=== PATIENT | male | born 1945 | race African-American/Black ===

== ENCOUNTER 2017-11-26 21:26 | Inpatient (IN) | payer MEDICARE ==
[~2017-11-26 21:26] MED LIST: ISOVUE-370 76%-LOCM 1 ML ONE; Iopamidol 370 76% 50 ML VIAL FS ONE
--- NOTE | 2017-11-26 22:12 | RAD ---
ONE VIEW CHEST TWO VIEW ABDOMEN 11/26/17 COMPARISON: 08/25/03. HISTORY: Abdominal distention. FINDINGS: Slight elongation of the aorta. Normal cardiac silhouette. Pulmonary vessels and hilum are normal. Co stophrenic angles are clear. Possible nodular density in the right lung base. No pneumothorax or osse ous abnormalities. Left sided Mediport catheter is noted. ABDOMEN TWO VIEWS: Nonspecific bowel gas pattern. No suspicious densities in the abdomen or pelvis. No pneumoperitoneum. No differential air fluid levels. IMPRESSION: 1. Nonspecific bowel gas pattern. 2. Possible nodular density in the right lung base. POS: [facility]
[2017-11-26] MEDS ORDERED: Fentanyl 100 MCG/2 ML VIAL ONE (22:17)
[2017-11-26 22:27] LABS: #Lymphocytes 1.3 thou/uL (1.20-3.40); #Monocytes 0.6 thou/uL (0.11-0.59); #Neutrophils 3.5 thou/uL (1.40-6.50); %Basophils 0.7 % (0.0-1.0); %Eosinophils 0.7 % (0.0-10.0); %Lymphocytes 23.8 % (21.0-51.0); %Monocytes 11.5 % (0.0-10.0); %Neutrophils 63.2 % (42.0-75.0); Hemoglobin 13.7 g/dL (14.0-18.0); Mean Corpuscular HGB CONC 34.6 g/dL (32.0-36.0); Mean Corpuscular Hemoglobin 34.7 pg (27.0-31.0); Mean Platelet Volume 6.7 fL (7.4-10.4); Platelet Count 290 thou/uL (130-400); RBC Distribution Width 13.4 % (11.5-14.5); Red Blood Cell (RBC) Count 3.94 mill/uL (4.70-6.10); White Blood Cell (WBC) Count 5.5 thou/uL (4.8-10.8)
[2017-11-26 22:43] LABS: Lactic Acid 1.1 mmol/L (0.5-2.2)
[2017-11-26] MEDS ORDERED: Morphine 4 MG/ML VIAL ONE (23:18)
[2017-11-26 23:19] LABS: Albumin 3.5 g/dL (3.4-4.8)
[2017-11-26 23:20] LABS: Chloride 100 mmol/L (98-107); Potassium 3.8 mmol/L (3.5-5.1); Sodium 137 mmol/L (136-145)
[2017-11-26 23:21] LABS: Glucose 99 mg/dL (80-115)
[2017-11-26 23:22] LABS: Globulin 4.1 g/dL (2.4-3.5); Protein, Total 7.6 g/dL (5.8-8.1)
[2017-11-26 23:23] LABS: Anion Gap 11 mmol/L (10-20); Bilirubin, Total 1.2 mg/dL (0.2-1.2); Carbon Dioxide 30 mmol/L (23-31)
[2017-11-26 23:24] LABS: Alkaline Phosphatase 205 U/L (40-150)
[2017-11-26 23:25] LABS: Calc. Creatinine Clearance 0 mL/min (70-130); Estimated GFR-MDRD Greater than 90
[2017-11-26 23:26] LABS: BUN (Urea Nitrogen) 21 mg/dL (8.4-25.7)
[2017-11-26 23:27] LABS: ALT (SGPT) 30 U/L (8-55); AST (SGOT) 41 U/L (5-34)
[2017-11-26 23:28] LABS: Lipase 227 U/L (8-78)
[2017-11-27] MEDS ORDERED: Morphine 4 MG/ML VIAL ONE ×2 (00:15→02:05)
--- NOTE | 2017-11-27 01:46 | PDOC.FPRHP ---
- History of Present Illness Chief Complaint: Abdominal Pain/Distention History of Present Illness: 72 yo AA male w/ pmh of Gastric Cancer currently getting Chemo and hx of Prostate cancer comes in w/ intractable abdominal pain and distention. Reports being constipated since Friday. Says pain started on Friday and has progressively gotten worse. Says pain is achy and rates 8/9. Radiates to his back. Says he gave himself an enema today and had some regular stools. Reports pain not resolved. Denies any bloody stool. Denies any n/v. Denies any fever or chills. Denies any chest pain or SOB. Denies any urinary sx's. Denies any burning with urination. Pt reports being dx with gastric cancer last may and had surgery. Doesn't remember what surgery. Is currently getting chemo every 2 weeks down at [facility]. Does not remember who is doctor is. Says had an episode of abdominal pain like this happened earlier this year and he went to [place]. He also reports being dx with prostate cancer 3 years ago and having prostectomy for that. Pt does not know results of most recent PET scan or CT scan. Pt not the greatest historian. Denies taking any medications at this time. - Allergies/Adverse Reactions Allergies Allergy/AdvReac Type Severity Reaction Status Date / Time No Known Allergies Allergy Verified 11/27/17 04:46 - Home Medications Medication Instructions Recorded Confirmed Type No Known [No Known] 11/27/17 11/27/17 History - History PMHx: COPD, Gastric Cancer on Chemo, Hx Prostate Cancer PSHx: Prostectomy, Some GI surgery for Gastric Cancer last year FHx:Non contributory Social: Smokes 1/4 ppd, Denies alcohol use, Denies illicit drug use - Review of Systems General: reports: weight/appetite/sleep changes. denies: fever/chills, night sweats, fatigue, other Eyes: denies: eye pain, vision changes ENT: denies: nasal congestion, rhinorrhea Respiratory: denies: cough, congestion, shortness of breath, exercise intolerance Cardiovascular: denies: chest pain, palpitation, paroxysmal nocturnal dyspnea, orthopnea Gastrointestinal: reports: constipation, abdominal pain. denies: nausea, vomiting, diarrhea, GI bleeding Genitourinary: denies: incontinence, dysuria, polyuria, discharge Skin: denies: rashes, lesions, jaundice, itching Musculoskeletal: denies: pain, tenderness, stiffness, swelling, arthritis/ arthralgias Neurological: denies: numbness, syncope, seizure, weakness Psychological: denies: anxiety, depression - Vital signs BP: [137/86] HR: [76] RR: [14] Tmax: [98.4 F] Pox: [97]% on [ra] Wt: [] - Physical Exam Constitutional: awake, alert and oriented HEENT: normocephalic and atraumatic, PERRLA, grossly normal hearing, normal nasal mucosa, MMM Neck: supple, trachea midline, no LAD, no JVD, no bruits Chest: no-tender to palpation, no lesions Heart: RRR, normal S1/S2, no murmurs/rubs/gallops, pulses present, no edema Lungs: no respiratory distress, no wheezing -Lungs: some mild rales noted. Abdomen: bowel sounds present -Abdomen: Very distended, Belly hard and tight. TTP in lower quadrants. Negative Mcmurphys and McBurneys Musculoskeletal: normal structure, normal tone Neurological: no focal deficit Skin: no rash/lesions, good turgor, capillary refill <2 seconds Heme/Lymphatic: no unusual bruising or bleeding, no purpura, no petechia Psychiatric: normal mood and affect, good judgment and insight, intact recent and remote memory FMR H&P: Results - Labs Result Diagrams: 11/27/17 05:40 11/27/17 05:40 Lab results: WBC 5.5 thou/uL (4.8-10.8) 11/26/17 22:15 Hgb 13.7 g/dL (14.0-18.0) L 11/26/17 22:15 Hct 39.5 % (42.0-52.0) L 11/26/17 22:15 MCV 100.0 fl (80.0-94.0) H 11/26/17 22:15 Plt Count 290 thou/uL (130-400) 11/26/17 22:15 Neutrophils % 63.2 % (42.0-75.0) 11/26/17 22:15 Sodium 137 mmol/L (136-145) 11/26/17 23:06 Potassium 3.8 mmol/L (3.5-5.1) 11/26/17 23:06 Chloride 100 mmol/L (98-107) 11/26/17 23:06 Carbon Dioxide 30 mmol/L (23-31) 11/26/17 23:06 BUN 21 mg/dL (8.4-25.7) 11/26/17 23:06 Creatinine 0.91 mg/dL (0.6-1.3) 11/26/17 23:06 Glucose 99 mg/dL (80-115) 11/26/17 23:06 Lactic Acid 1.1 mmol/L (0.5-2.2) 11/26/17 22:15 Calcium 9.0 mg/dL (7.8-10.44) 11/26/17 23:06 Total Bilirubin 1.2 mg/dL (0.2-1.2) 11/26/17 23:06 AST 41 U/L (5-34) H 11/26/17 23:06 ALT 30 U/L (8-55) 11/26/17 23:06 Alkaline Phosphatase 205 U/L (40-150) H 11/26/17 23:06 Creatine Kinase 28 U/L (30-200) L 11/26/17 23:03 Serum Total Protein 7.6 g/dL (5.8-8.1) 11/26/17 23:06 Albumin 3.5 g/dL (3.4-4.8) 11/26/17 23:06 Lipase 227 U/L (8-78) H 11/26/17 23:06 - Radiology Interpretation Abdominal x-ray Status: image reviewed by me, report reviewed by me (Nonspecific bowel gas pattern, Possible nodular density in the Right lung Base) CT scan - abdomen Status: image reviewed by me, pending (Official read pending. Loops of small bowel appear distended and no air noted. Will await final read) FMR H&P: A/P - Problem List (1) Gastric cancer Current Visit: Yes Status: Acute (2) Constipation Current Visit: Yes Status: Acute Code(s): K59.00 - CONSTIPATION, UNSPECIFIED (3) History of prostate cancer Current Visit: Yes Status: Acute Code(s): Z85.46 - PERSONAL HISTORY OF MALIGNANT NEOPLASM OF PROSTATE (4) Pancreatitis Current Visit: Yes Status: Acute Code(s): K85.90 - ACUTE PANCREATITIS WITHOUT NECROSIS OR INFECTION, UNSP (5) Chemotherapy adverse reaction Current Visit: Yes Status: Acute Code(s): T45.1X5A - ADVERSE EFFECT OF ANTINEOPLASTIC AND IMMUNOSUP DRUGS, INIT (6) COPD (chronic obstructive pulmonary disease) Current Visit: No Status: Acute (7) Tobacco abuse Current Visit: No Status: Acute Code(s): Z72.0 - TOBACCO USE (8) Continuous severe abdominal pain Current Visit: Yes Status: Acute Code(s): R10.9 - UNSPECIFIED ABDOMINAL PAIN (9) Macrocytic anemia Current Visit: Yes Status: Acute Code(s): D53.9 - NUTRITIONAL ANEMIA, UNSPECIFIED - Plan Disposition/LOS: 1)Severe Abdominal Pain 2/2 Constipation v. mild pancreatitis v. chemotherapy: -Belly very distended at this time -General Surgery-[facility] consulted- follow recs -Will make NPO for now -No opiates for now. Torodol, Simethicone, Zofran and Reglan for pain. Laxatives -KUB- no acute pathology noted -CT abdomen pending -Lacutlose and Enema PRN for potential constipation -Lipase mildly elevated. NS@100mls/hr. pain radiating to back. Possible pancreatitis. 2) Gastric cancer: patient still undergoing q2wk chemotherapy. Chemo could be causing abdominal pain -will request records of current treatment plan and prior surgeries from [facility] 3) H/o prostate cancer: patient denies current urinary symptoms. Records from [facility] 4) COPD: no evidence of exacerbation, Duonebs PRN as needed 5) Tobacco abuse: cessation counseling 6) Macrocytic anemia: check B12, folate especially with possible gastric resection 7) Elevated alk phos: check ggt FMR H&P: Upper Level - Pertinent history 72 yo BM pmhx gastric and prostate cancers and COPD p/w abdominal pain. States that the pain first started Friday and has been gradually worsening since then. Describes it as achy pain, 8-9/10 in severity, located mostly in lower abdomen, radiated to the back. Patient has noticed his abdomen has been very large and tense. States that he has not been having regular bowel movements - had to give himself a laxative this morning which produced a small BM. States that he has had a similar episode multiple years ago but is not sure what the cause was at that time. Patient apparently had multiple surgeries for his gastric cancer done this past fall at [facility]. Denies f/c, N/V, bloody/dark tarry stools urinary complaints, or other associated symptoms. - Pertinent findings PE Gen: AAOx3, NAD CV: irregular rhythm, normal rate, no m/g/r Lungs: occasional wheeze but otherwise clear Abd: tense, distended but only mildly tender in LLQ, normoactive BS - Plan Date/Time: 11/27/17 0146 I, Forrest Toro MD, have evaluated this patient and agree with findings/plan as outlined by design engineering intern resident. Pertinent changes/additions are listed here. 72 y/o AAM with 1) Constipation v. mild pancreatitis v. chemotherapy related abd pain: Admit to medical, keep NPO O/N, IVF, provide pain control but limit opiates, simethicone , laxatives. Surgery consulted from ER. KUB unremarkable, pending official CT abd read. 2) Gastric cancer: patient still undergoing q2wk chemotherapy; will request records of current treatment plan and prior surgeries 3) H/o prostate cancer: patient denies current urinary symptoms 4) COPD: no evidence of exacerbation, albuterol inhaler if needed 5) Tobacco abuse: cessation counseling 6) Macrocytic anemia: check B12, folate 7) Elevated alk phos: check ggt Attending Addendum - Attending Addendum Date/Time: 11/27/17 0910 I personally evaluated the patient and discussed the management with Dr. Starks I agree with the History, Examination, Assessment and Plan documented above with any addition or exceptions noted below.Patient feeling better with NGT placement still endorsing some pain. Patient S/P Davinci Robotic prostectomy [facility] x 3 years ago and resection gastric carcinoma questionable bypass [facility] x 1 year ago. Patient receiving biweekly chem( mediport) through [facility] GI Oncologist Dr April Hsieh [phone] due for next Chem 12/02/2017. Patient for surgical consult today.
[2017-11-27 02:06] LABS: Bilirubin Small (Negative); Blood, Urine Negative (Negative); Clarity CLEAR (Clear); Glucose, Urine (Dipstick) Negative (Negative); Leukocyte Trace (Negative); Protein, Urine (Dipstick) Trace mg/dL (Neg-Trace); pH, Urine 5.5 (5.0-9.0)
[2017-11-27 02:09] LABS: Bacteria/HPF None Seen HPF (None Seen); Pathc Cast-AUWi Flag 0.58 (0-2.49); RBC/HPF 0-3 HPF (0-3); Squamous Epithelial None Seen HPF (0-3); WBC/HPF 0-3 HPF (0-3)
[2017-11-27 02:13] LABS: Crystals/HPF None Seen HPF (Negative); Hyaline Casts/LPF NONE SEEN LPF (0-3 Hyaline)
[2017-11-27 02:15] LABS: Nitrite Negative (Negative)
[2017-11-27 02:18] LABS: Specific Gravity, Urine 1.059 (1.002-1.036)
[2017-11-27] MEDS ORDERED: Acetaminophen 650 MG Suppository PR PRN (02:26)
[2017-11-27] MEDS ORDERED: Ondansetron ODT 4 MG TAB PO PRN (02:26)
[2017-11-27] MEDS ORDERED: Ondansetron HCl/PF 4 MG/2 ML Vial IVP PRN (02:26)
[2017-11-27] MEDS ORDERED: Acetaminophen 325 MG TAB PO PRN (02:26)
[2017-11-27 04:21] VITALS: BMI 24.3
[2017-11-27 04:39] LABS: Amphetamine Not Detected (NotDetected); Barbiturates Screen Not Detected (NotDetected); Benzodiazepine Screen Not Detected (NotDetected); Cocaine Metabolite Screen Not Detected (NotDetected); Medtox Control Line Valid? VALID (VALID); Medtox Reader # READER 4; Methadone Not Detected (NotDetected); Methamphetamine Not Detected (NotDetected); Opiate Screen Detected (NotDetected); Oxycodone Screen Not Detected (NotDetected); Phencyclidine (PCP) Not Detected (NotDetected); THC/Cannabinoid Screen Not Detected (NotDetected); Tricyclic Screen Not Detected (NotDetected)
[2017-11-27] MEDS: Ketorolac Tromethamine 30 MG/ML VIAL IVP SCH ×3 (05:17→17:55)
[2017-11-27] MEDS: Metoclopramide HCl 10 MG/2 ML VIAL IVP SCH ×3 (05:18→21:09)
[2017-11-27] MEDS: Sodium Chloride 0.9% 1,000 ML IV SCH ×2 (05:19→14:43)
[2017-11-27 06:09] LABS: #Monocytes 0.3 thou/uL (0.11-0.59); #Neutrophils 1.8 thou/uL (1.40-6.50); %Basophils 1.1 % (0.0-1.0); %Eosinophils 1.3 % (0.0-10.0); %Lymphocytes 31.8 % (21.0-51.0); %Monocytes 10.2 % (0.0-10.0); %Neutrophils 55.6 % (42.0-75.0); Hemoglobin 15.7 g/dL (14.0-18.0); Mean Corpuscular HGB CONC 33.6 g/dL (32.0-36.0); Mean Corpuscular Hemoglobin 33.8 pg (27.0-31.0); Mean Platelet Volume 6.8 fL (7.4-10.4); Platelet Count 202 thou/uL (130-400); RBC Distribution Width 13.5 % (11.5-14.5); Red Blood Cell (RBC) Count 4.64 mill/uL (4.70-6.10); White Blood Cell (WBC) Count 3.2 thou/uL (4.8-10.8)
[2017-11-27 06:28] LABS: ALT (SGPT) 29 U/L (8-55); AST (SGOT) 39 U/L (5-34); Albumin 3.4 g/dL (3.4-4.8); Alkaline Phosphatase 202 U/L (40-150); Anion Gap 10 mmol/L (10-20); BUN (Urea Nitrogen) 19 mg/dL (8.4-25.7); Bilirubin, Total 1.1 mg/dL (0.2-1.2); Calc. Creatinine Clearance 98 mL/min (70-130); Calcium 8.8 mg/dL (7.8-10.44); Carbon Dioxide 30 mmol/L (23-31); Chloride 100 mmol/L (98-107); Estimated GFR-MDRD Greater than 90; Globulin 4.1 g/dL (2.4-3.5); Glucose 89 mg/dL (80-115); Potassium 3.5 mmol/L (3.5-5.1); Protein, Total 7.5 g/dL (5.8-8.1); Sodium 136 mmol/L (136-145)
--- NOTE | 2017-11-27 07:01 | CT ---
ABDOMEN CT WITH CONTRAST: PELVIS CT WITH CONTRAST: HISTORY: Abdominal distention. Worsening abdominal distention for four days. Constipation. Multiple previou s surgeries due to gastric cancer. COMPARISON: 08/28/2012 TECHNIQUE: An abdomen and pelvis CT is performed with IV and oral contrast. Coronal reformatted images are subm itted for interpretation. FINDINGS: ABDOMEN: The lung bases are clear. The heart size is normal. No pericardial effusion. The descend ing thoracic aorta and abdominal aorta have a normal caliber. No periaortic fat stranding. There is nonspecific periportal edema. The portal vein is patent. Contrast opacifies the stomach. The expected region of the gastric antrum and duodenum have circumfe rential mucosal thickening with associated soft tissue prominence and nonspecific punctate calcificat ion. There appear to be fluid-filled small bowel loops in the epigastric region. There appears to b e a diverting segment of bowel emanating from the expected region of the gastric cardia. These small bowel loops are opacified with contrast and have a normal caliber. There appear to be loculated flu id collections in the left upper quadrant with septae. These fluid collections displace small bowel loops and compress and deform the stomach. There is displacement of the spleen secondary to the aforementioned loculated fluid. The pancreas, a drenal glands, and the liver have appropriate enhancement. The pancreatic duct is identified at the upper limits of normal. Symmetric enhancement of the kidneys. No mesenteric mass, lymphadenopathy, or free air. PELVIS: There is free fluid in the pelvis. No mass, lymphadenopathy, or free air. The urinary blad mindy is unremarkable. Patchy areas of sclerosis are nonspecific. IMPRESSION: 1. Multifocal loculated areas of abdominal fluid. 2. Circumferential mucosal thickening in the gastric antrum and duodenum. 3. Dilated loop of small bowel in the expected region of the duodenum. It appears this bowel loop i s fluid filled. An additional possible diverting small bowel loop is noted emanating from the gastri c cardia. These small bowel loops do no appear to be dilated. Correlation with surgical history is recommended. 4. Soft tissue mass, as described above, in the region of the gastric antrum and duodenum, with nons pecific associated calcifications. POS: [facility]
--- NOTE | 2017-11-27 07:45 | RAD ---
ABDOMEN 1 VIEW: Date: 11/27/17 HISTORY: NG tube placement. COMPARISON: Abdomen radiograph prior day. FINDINGS: There is contrast in the renal collecting system with dilatation of the right renal collecting system . The Port-A-Cath tip is in similar position. The enteric tube tip is in the gastric body. IMPRESSION: 1. Enteric tube tip in gastric body. 2. Mild dilatation of right renal collecting system. POS: [facility]
[2017-11-27] MEDS: Simethicone Chewable 80 MG TAB PO SCH ×4 (08:34→21:09)
[2017-11-27] MEDS ORDERED: Famotidine 20 MG TAB PO SCH (09:00)
[2017-11-27] MEDS ORDERED: Famotidine/PF 20 mg/2ml Vial SLOW IVP SCH (09:00)
[2017-11-27] MEDS: Morphine 4 MG/ML VIAL SLOW IVP PRN ×3 (09:56→21:07)
[2017-11-27] MEDS ORDERED: Bisacodyl 10 MG SUPP PR PRN (10:56)
[2017-11-27] MEDS ORDERED: Bisacodyl 10 MG SUPP PR SCH (11:00)
--- NOTE | 2017-11-27 13:50 | CON ---
DATE OF CONSULTATION: 11/27/2017 REQUESTING PHYSICIAN: Parviz Salvador M.D. HISTORY OF PRESENT ILLNESS: This is a 72-year-old -[place] man with a known history of gastric and prostate carcinoma. The patient is status post prostatectomy. Gastric carcinoma type is unknown at this time. The patient is being managed at [facility] where he is undergoing chemotherapy. His next clinic appointment is in 5 days. The patient presented to the emergency department today complaining of severe abdominal pain and bloating. In fact, he drove himself to the emergency department. He rates his pain at 8/10. Denies any nausea or emesis. Last bowel movement was yesterday. Last time he passed flatus was also yesterday. The patient denies any fevers or chills. PAST MEDICAL HISTORY: Pertinent for gastric carcinoma, prostatic carcinoma, COPD, and pancreatitis. SURGICAL HISTORY: Pertinent for prostatectomy. Other pertinent surgical history includes previous colonoscopy and placement of left subclavian Port-A- Cath for chemotherapy. SOCIAL HISTORY: Patient smokes one-quarter pack cigarette per day and equivalent of over [id number] cigarette smoking history. He denies any ethanol or illicit drug abuse. FAMILY HISTORY: Noncontributory for this patient's age. REVIEW OF SYSTEMS: Ten point review of systems essentially unremarkable except for as stated in past medical history and chief complaint. PHYSICAL EXAMINATION: GENERAL: This reveals a 72-year-old normally developed man who is otherwise coherent and interactive and appears stated age. The patient is alert and oriented x3, appears to be in no acute distress at the time of my evaluation. VITAL SIGNS: Today includes blood pressure 128/72, pulse is 61, respiratory rate is 18, temperature 98.3 degrees Fahrenheit, and oxygen saturation is 95% on room air. HEENT: Examination reveals normocephalic and atraumatic. Pupils are equal, round, and reactive to light and accommodation. HEART: Reveals regular rate and rhythm. No murmurs or gallops auscultated. LUNGS: Clear to auscultation bilaterally. Breathing is regular and unlabored. ABDOMEN: Soft, but markedly distended. He has moderate tenderness to palpation with no gross rebound tenderness present. Bowel sounds in all four quadrants appear normoactive. The nasogastric tube which was placed this morning so far has returned scant gastric and nonbilious effluent. EXTREMITIES: Reveals 2+ radial and pedal pulses bilaterally. No ankle edema is present. NEUROLOGIC: Examination reveals no focal deficits present. LABORATORY DATA AND IMAGING DATA: Pertinent laboratory findings today includes CBC with 3,200 white blood cells, hemoglobin and hematocrit 15.7 and 46.7 respectively. Platelet count is 202,000. Metabolic profile: Sodium 136, potassium is 3.5, chloride is 100, bicarbonate 30, BUN 19, creatinine 0.81, glucose is 89, AST is 39, ALT is 29, and alkaline phosphatase is 202. I have personally reviewed CT scan of the abdomen and pelvis which reveals multiple loculated fluid collections as well as some soft tissue mass in the gastric antrum. No pneumoperitoneum or pneumatosis intestinalis is noted. IMPRESSION: 1. Acute abdominal pain, likely secondary to adynamic ileus vs Partial Small bowel obstruction 2. Recently diagnosed gastric carcinoma, patient is undergoing chemotherapy. 3. History of prostatic carcinoma, status post prostatectomy. RECOMMENDATIONS: 1. Continue with conservative management. There is really no benefit for this nasogastric tube. We will discontinue this at this time and initiate clear liquid diet as patient may tolerate. There is no surgical indication for this patient at this time; however, General Surgery will follow along and make further recommendations as necessary. 2. I recommended we obtain his copies of his records from [facility]. Above findings and plan discussed with the patient who indicates an understanding of information given. I have answered his questions. Thank you again Dr. Salvador for allowing me the opportunity to participate in the care of this patient. RAD[facility]
[2017-11-27] MEDS: Famotidine 40 MG/4 ML VIAL SLOW IVP SCH (21:10)
--- NOTE | 2017-11-27 22:36 | PDOC.EVN ---
Event Note - Event Note Event Note: Patient evaluated for possible diagnostic paracentesis to rule out SBP. Bedside ultrasound performed showing minimal ascites with several large, dilated loops of bowel with air fluid levels as well as small bowel resting against the abdominal wall in all four quadrants. Unable to perform procedure at this time. May consider performing under fluoroscopy if testing is still desired in the morning.
[2017-11-28] MEDS: Morphine 4 MG/ML VIAL SLOW IVP PRN ×2 (00:51→05:32)
[2017-11-28] MEDS: Ketorolac Tromethamine 30 MG/ML VIAL IVP SCH ×4 (00:52→18:06)
[2017-11-28] MEDS: Sodium Chloride 0.9% 1,000 ML IV SCH (00:53)
[2017-11-28] MEDS: Metoclopramide HCl 10 MG/2 ML VIAL IVP SCH ×2 (05:31→15:15)
[2017-11-28 08:04] VITALS: BP 158/80; TEMP 98.1
--- NOTE | 2017-11-28 08:13 | PDOC.FM ---
- Subjective Subjective: The patient reports that his abdominal pain and distension are still present, but are a small amount better than yesterday. He had 2 watery BM's yesterday. He is tolerating PO well. He is having a lot of back pain that is chronic for him. He reports some nausea, but denies any vomiting. - Objective MAR Reviewed: Yes Vital Signs & Weight: Vital Signs (12 hours) Temp Pulse Resp BP Pulse Ox 11/28/17 08:00 98.1 F 94 16 158/80 H 98 Weight Weight 81.24 kg Result Diagrams: 11/27/17 05:40 11/27/17 05:40 <Annette Jain - Last Filed: 11/28/17 08:09> - Objective Vital Signs & Weight: Vital Signs (12 hours) Temp Pulse Resp BP Pulse Ox 11/28/17 08:00 98.1 F 94 16 158/80 H 98 Weight Weight 81.24 kg Result Diagrams: 11/27/17 05:40 11/27/17 05:40 <Roni Oliveira - Last Filed: 11/28/17 11:34> Phys Exam - Physical Examination Constitutional: NAD HEENT: moist MMs Respiratory: no wheezing, no rales, no rhonchi, clear to auscultation bilateral Cardiovascular: RRR, no significant murmur, no rub distended, tense, hyperactive bowel sounds, mildly tender to palpation tenderness worse on the RUQ, but present throughout. Musculoskeletal: no edema, pulses present Neurological: non-focal, moves all 4 limbs Psychiatric: normal affect, A&O x 3 Skin: normal turgor, cap refill <2 seconds <Annette Jain - Last Filed: 11/28/17 08:09> Dx/Plan (1) Continuous severe abdominal pain Code(s): R10.9 - UNSPECIFIED ABDOMINAL PAIN Status: Acute (2) Constipation Code(s): K59.00 - CONSTIPATION, UNSPECIFIED Status: Acute QualifierTitle: Constipation type: slow transit constipation Qualified Code(s): K59.01 - Slow transit constipation (3) Carcinomatosis Code(s): C80.0 - DISSEMINATED MALIGNANT NEOPLASM, UNSPECIFIED Status: Acute (4) Ascites Code(s): R18.8 - OTHER ASCITES Status: Acute QualifierTitle: Ascites type: malignant Qualified Code(s): R18.0 - Malignant ascites (5) Gastric cancer Status: Acute QualifierTitle: Malignant neoplasm of stomach location: unspecified location Qualified Code(s): C16.9 - Malignant neoplasm of stomach, unspecified (6) Macrocytic anemia Code(s): D53.9 - NUTRITIONAL ANEMIA, UNSPECIFIED Status: Acute (7) History of prostate cancer Code(s): Z85.46 - PERSONAL HISTORY OF MALIGNANT NEOPLASM OF PROSTATE Status: Acute (8) COPD (chronic obstructive pulmonary disease) Status: Acute QualifierTitle: COPD type: unspecified COPD Qualified Code(s): J44.9 - Chronic obstructive pulmonary disease, unspecified (9) HTN (hypertension) Code(s): I10 - ESSENTIAL (PRIMARY) HYPERTENSION Status: Acute QualifierTitle: Hypertension type: essential hypertension Qualified Code( s): I10 - Essential (primary) hypertension (10) Polysubstance abuse Code(s): F19.10 - OTHER PSYCHOACTIVE SUBSTANCE ABUSE, UNCOMPLICATED Status: Acute (11) Tobacco abuse Code(s): Z72.0 - TOBACCO USE Status: Acute - Plan Plan: 1) Severe Abdominal Pain 2/2 Constipation v. Chronic cancer related Abdomen very distended at this time. Patient has irregular BM's. Rectal exam performed with no hard stool found in the vault. Patient has stage IV gastric cancer with carcinomatosis and is on palliative chemotherapy with 5-FU. He likely has slow transit related to the carcinomatosis and the chronic opioid use. The patient was recently seen in the ED on 11/24 at an OSH for abdominal pain/distension and had a therapeutic paracentesis performed that relieved his abdominal pain. SBP has been considered in this patient, however, on US it appears that he has distended loops of small bowel with air-fluid levels near the abdominal wall with no pockets of fluid to tap. The patient has not had any signs/symptoms of infection throughout his hospitalization. Patient had 2 watery BM's yesterday -General Surgery-[facility] consulted by the ED, appreciate recs -Laxatives, Zofran, Simethicone -ADAT 2) Gastric cancer, stage IV patient still undergoing q2wk chemotherapy with 5-FU (Oxaliplatin was recently d /c'd). Chemo could be causing abdominal pain. Spoke to Oncologist at [facility]. He is scheduled for next dose of chemo on 12/02/17. His chemo is for palliative reasons, but has been helping the cancer decrease in size. It has been worsening the ascites though, which is why the Oxaliplatin was d/c'd recently. -Request records from MD [facility] 3) H/o prostate cancer patient denies current urinary symptoms. Records from [facility] 4) COPD no evidence of exacerbation at this time -Duonebs PRN 5) Tobacco abuse cessation counseling 6) Macrocytic anemia B12 normal -RBC folate pending <Annette Jain - Last Filed: 11/28/17 08:09> (1) Gastric cancer Status: Acute Qualifiers: Malignant neoplasm of stomach location: unspecified location Qualified Code (s): C16.9 - Malignant neoplasm of stomach, unspecified (2) Constipation Code(s): K59.00 - CONSTIPATION, UNSPECIFIED Status: Acute Qualifiers: Constipation type: slow transit constipation Qualified Code(s): K59.01 - Slow transit constipation (3) History of prostate cancer Code(s): Z85.46 - PERSONAL HISTORY OF MALIGNANT NEOPLASM OF PROSTATE Status: Acute (4) Pancreatitis Code(s): K85.90 - ACUTE PANCREATITIS WITHOUT NECROSIS OR INFECTION, UNSP Status: Acute (5) Chemotherapy adverse reaction Code(s): T45.1X5A - ADVERSE EFFECT OF ANTINEOPLASTIC AND IMMUNOSUP DRUGS, INIT Status: Acute Qualifiers: Encounter type: initial encounter Qualified Code(s): T45.1X5A - Adverse effect of antineoplastic and immunosuppressive drugs, initial encounter (6) COPD (chronic obstructive pulmonary disease) Status: Acute Qualifiers: COPD type: unspecified COPD Qualified Code(s): J44.9 - Chronic obstructive pulmonary disease, unspecified (7) Tobacco abuse Code(s): Z72.0 - TOBACCO USE Status: Acute (8) Continuous severe abdominal pain Code(s): R10.9 - UNSPECIFIED ABDOMINAL PAIN Status: Acute (9) Macrocytic anemia Code(s): D53.9 - NUTRITIONAL ANEMIA, UNSPECIFIED Status: Acute <Roni Oliveira - Last Filed: 11/28/17 11:34> Attending Addendum - Attending Addendum Date/Time: 11/28/17 1126 I personally evaluated the patient and discussed the management with Dr. Jain I agree with the History, Examination, Assessment and Plan documented above with any addition or exceptions noted below. Patient improved still c/o lower back and lower abdominal pain no fever no pocket of fluid amenable to consider Paracentesis to r/o SBP do not feel at this time wothwhile to ask IR given observation since admission and remains stable. Large tumor burden to abdomen. Patient at present with poor insight to terminal supervisor prognosis. Continue palliative care and increase activity and dismissal approaching. <Roni Oliveira - Last Filed: 11/28/17 11:34>
[2017-11-28] MEDS: Simethicone Chewable 80 MG TAB PO SCH ×2 (08:48→12:08)
[2017-11-28] MEDS: HYDROcodone/Acetaminophen 5/325 mg Tablet PO PRN ×2 (08:48→15:16)
[2017-11-28] MEDS: Famotidine 40 MG/4 ML VIAL SLOW IVP SCH (08:48)
[2017-11-28] MEDS ORDERED: Bisacodyl 10 MG SUPP PR SCH (11:15)
--- NOTE | 2017-11-28 13:06 | PRG ---
DATE OF SERVICE: 11/28/2017 SUBJECTIVE: Mr. Paiz is a 72-year-old male with a history of gastric and prostate cancer. The [facility] team was consulted for concerns of abdominal pain and bloating. He was evaluated and found to have likely adynamic ileus. Overnight, the patient reported no further nausea or vomiting. He stat es that he had two bowel movements yesterday. He reports that his abdominal pain is better. He ate breakfast this morning and has had no vomiting since that time. OBJECTIVE: VITAL SIGNS: Temperature 98.1, pulse 94, respirations 16, O2 sat 98% on room air, blood pressure 158 /80. GENERAL: Well-developed male in no acute distress, resting in bed. PULMONARY: Normal work of breathing. Symmetric rise. CARDIOVASCULAR: Regular rate and rhythm. GASTROINTESTINAL: Abdomen is soft but distended. There was no tenderness to palpation. No guarding , rigidity or signs of peritonitis. Bowel sounds are positive. MUSCULOSKELETAL: Moves all extremities x4. NEUROLOGIC: No focal deficit noted. LABORATORY DATA AND IMAGING DATA: There are no new laboratories or radiographic studies to review. ASSESSMENT: 1. Abdominal pain and distention likely secondary to ileus. 2. Gastric carcinoma. 3. History of prostate carcinoma. PLAN: Continue care as ordered. The patient appears to be tolerating a general diet at this time. I discussed the importance of mobility and ambulation with the patient. Surgical team will continue to follow, but there is no acute indication for surgical intervention at this time. The patient was discussed with Dr. Moyer.
[2017-11-28 13:21] LABS: Hematocrit 34.1 % (37.5-51.0); RBC Folate Test Component 1155 ng/mL (>498)
--- NOTE | 2017-12-01 14:06 | DIS-2 ---
DATE OF ADMISSION: 11/27/2017 DATE OF DISCHARGE: 11/28/2017 ADMITTING ATTENDING: Roni Oliveira MD. DISCHARGE ATTENDING: Roni Oliveira MD. ADMITTING RESIDENT: Jayden Starks MD DISCHARGE RESIDENT: Annette Jain MD CONSULTATIONS: Dr. Demetri Moyer. PROCEDURES: None. PRIMARY DIAGNOSES: 1. Intractable abdominal pain. 2. Constipation. 3. Stage IV gastric cancer. 4. Macrocytic anemia. 5. Ascites. 6. Carcinomatosis. SECONDARY DIAGNOSES: 1. Chronic obstructive pulmonary disease. 2. History of prostate cancer. 3. Hypertension. 4. Polysubstance abuse. DISCHARGE MEDICATIONS: 1. Dulcolax 10 mg DE daily p.r.n. 2. Lactulose 30 grams p.o. t.i.d. 3. Zofran 4 mg p.o. q.6 hours p.r.n. nausea or vomiting. 4. Mylicon 80 mg p.o. p.c. at bedtime. DISCONTINUED MEDICATIONS: None. HISTORY OF PRESENT ILLNESS AND HOSPITAL COURSE: This is a 72-year-old male with a past medical histo ry of stage IV gastric cancer being followed by a GI oncologist at [facility], who presented to [facility] ER due to intractable abdominal pain and constipation. The patient had been seen a couple of days prior at an outside ER for abdominal distention and pain and has had a paracentesis done, which relie bj some of the pain and distention; however, the patient had developed worsened constipation after t his. The patient had not had a normal bowel movement in a few days. The patient takes Ramsey 10/325 mg tablets at home for chronic back pain. [facility] CT, the patient had multifocal loculated areas of abdominal fluid as well as circumferential mucosal thickening in the gastric antrum, and duodenum and dilated loop of small b owel in the duodenum. The patient was seen by Dr. Moyer to evaluate as the patient's abdomen was sig nificantly distended on initial presentation; however, he deemed that he was not a good surgical cand idate and the distention was likely all related to a combination of the patient's ascites, carcinomat osis, and constipation. The patient was given several medications to help with constipation and repo rted having several watery bowel movements overnight on his first night of hospitalization and report ed some improvement in his pain and distention. Consideration was made for SBP due to the patient's ascites; however, on ultrasound, there was no pocket of fluid that could be easily accessed at bedsut e and the patient throughout his entire hospitalization remained afebrile with no elevated white coun t, no tachycardia or tachypnea and the patient did not have significant abdominal tenderness on exam. It is likely that the patient's abdominal pain was all related to his constipation. The patient's pain continued to improve as he had more bowel movements. He was discharged home with suppositories and lactulose as well as encouraged to continue the stool softeners he already had at home. The marga ent was given 1 week supply of Ramsey until he could get to his pain management doctor. I did speak o n the phone [facility] and she informed me that the patient had recently been transitioned on his chemotherapy from 5-FU and oxaliplatin to just 5-FU due to worsenin g ascites lately. The patient was on the chemotherapy mostly for palliative purposes as his cancer w as very extensive. The patient has poor insight into his disease process despite multiple conversati ons with his oncologist and with us in the hospital. DISPOSITION: Stable. DISCHARGE INSTRUCTIONS: 1. Location: Home. 2. Diet: No restrictions. 3. Activity: As tolerated. [facility]. [facility] within 1 [facility], and with GI oncologist on 12/02.
== END 2017-11-28 18:17 | disposition home or self-care (01) | DRG 392 ==
LOC: ERS 21:26 → ONC 11-27 02:04
PROVIDERS: ADMIT Family Medicine; ATTEND Family Medicine
DX: K59.00 Constipation, unspecified (principal); C16.9 Malignant neoplasm of stomach, unspecified; C78.6 Secondary malignant neoplasm of retroperitoneum and peritoneum; K56.0 Paralytic ileus; C83.38 Diffuse large B-cell lymphoma, lymph nodes of multiple sites; F17.210 Nicotine dependence, cigarettes, uncomplicated; D50.9 Iron deficiency anemia, unspecified; J44.9 Chronic obstructive pulmonary disease, unspecified
CPT/HCPCS: 36415; 74018; 74022; 74177; 80053; 80306; 81003; 81015; 82248; 82550; 82607; 82747; 82977; 83605; 83690; 85014; 85025; 96361; 96374; 96375; 96376; A4216; J1642; J1885; J2270; J2765; J3010; S0028